=== PATIENT | female | born 1935 | race Caucasian/White ===

== ENCOUNTER → 2018-09-23 12:49 | Outpatient (CLI) | payer MEDICARE, OTHER ==
[~2018-09-23 12:49] MED LIST: AKWA TEARS15 ML RIGHT EYE; DELSYM30 MG/5 M1 PO; FLORAJEN3 CAPS460 MG PO; FLUTICASONE PRO16 GM NASAL; LEVOTHYROXINE100 MCG PO; MUCINEX600 MG PO; PRADAXA150 MG PO; PROPAFENONE HC150 MG PO; PROTONIX40 MG PO; SINGULAIR10 MG PO; SULFAMETHOXAZOL1 TA3 PO; Tessalon Perle PO; VIBRAMYCIN 100100 MG PO; Xopenex 0.63 MG INH INH
[2018-10-03 15:20] VITALS: BMI 23.2
== END | disposition home or self-care (01) ==
LOC: D.CT 12:49
PROVIDERS: ATTEND Family Medicine
DX: R05 Cough (principal)

== ENCOUNTER 2018-10-02 18:37 | Inpatient (IN) | payer MEDICARE, OTHER ==
[~2018-10-02] VITALS: Ht 165.1 cm; Wt 63.5 kg
[2018-10-02] MEDS ORDERED: PRADAXA150 MG PO (18:57)
[2018-10-02] MEDS ORDERED: PROPAFENONE HC150 MG PO (18:57)
[2018-10-02] MEDS ORDERED: PROTONIX40 MG PO (18:58)
[2018-10-02 19:33] LABS: BASOPHILS 0.1 % (0-2); EOSINOPHILS 0.9 % (0-7); HEMATOCRIT 37.9 % (36.0-48.0); HEMOGLOBIN 12.3 g/dL (12-16); IMMATURE GRANULOCYTES 0.4 % (0-5); LYMPHOCYTES 5.7 % (15-50); MCH 28.7 pg (26.0-34.0); MCHC 32.5 g/dL (31.0-37.0); MCV 88.6 fL (80.0-100.0); MEAN PLATELET VOLUME 8.4 fL (7.4-10.4); MONOCYTES 6.6 % (2-11); NEUTROPHILS 86.3 % (40-80); PLATELET COUNT 485 10x3/uL (130-400); RBC 4.28 10x6/uL (4.00-5.40); RDW 15.5 % (11.5-14.5); WBC 11.3 10x3/uL (4.8-10.8)
[2018-10-02 19:48] LABS: ALBUMIN 3.1 g/dL (3.4-5.0); ANION GAP 12.8 mmol/L (8-16); BILIRUBIN - TOTAL 0.67 mg/dL (0.2-1.3); CALCIUM 9.3 mg/dL (8.5-10.1); CARBON DIOXIDE 29.3 mmol/L (21.0-32.0); POTASSIUM - SERUM 4.1 mmol/L (3.5-5.1); PROTEIN - SERUM 8.1 g/dL (6.4-8.2)
[2018-10-02 22:14] VITALS: BP 127/53
--- NOTE | 2018-10-02 22:32 | NUR ---
REC'D PATIENT FROM ER. NO S/S OF DISTRESS. COMPLETED ADMISSION. PATIENT DENIES OTHER NEEDS AT THIS TIME. BED IN LOWEST POSITION AND CALL LIGHT WITHIN REACH. ENCOURAGED THE PATIENT TO CALL IF SHE HAS NEEDS. WILL CONTINUE TO MONITOR.
[2018-10-02 22:50] VITALS: BP 116/72; BMI 23.3
--- NOTE | 2018-10-03 07:30 | NUR ---
PT IN RESTROOM. UP AD ALEN. ALERT AND ORIENTED. NPO AFTER MIDNIGHT, GOING FOR TEST THIS AM. IV TO RIGHT WRIST, SL. SITE PATENT WITHOUT REDNESS OR SWELLING. NO C/O PAIN. NO S/S OF ACUTE DISTRESS NOTED. CALL LIGHT IN REACH. WILL CONTINUE TO MONITOR.
[2018-10-03 08:44] LABS: BASOPHILS 0.1 % (0-2); EOSINOPHILS 0.9 % (0-7); HEMATOCRIT 33.3 % (36.0-48.0); HEMOGLOBIN 10.8 g/dL (12-16); IMMATURE GRANULOCYTES 0.6 % (0-5); LYMPHOCYTES 10.1 % (15-50); MCH 28.5 pg (26.0-34.0); MCHC 32.4 g/dL (31.0-37.0); MCV 87.9 fL (80.0-100.0); MEAN PLATELET VOLUME 8.3 fL (7.4-10.4); MONOCYTES 12.1 % (2-11); NEUTROPHILS 76.2 % (40-80); PLATELET COUNT 491 10x3/uL (130-400); RBC 3.79 10x6/uL (4.00-5.40); RDW 15.4 % (11.5-14.5); WBC 8.7 10x3/uL (4.8-10.8)
[2018-10-03 09:01] LABS: ANION GAP 11.7 mmol/L (8-16); CARBON DIOXIDE 31.2 mmol/L (21.0-32.0); CREATININE - SERUM 0.9 mg/dL (0.6-1.3); POTASSIUM - SERUM 3.9 mmol/L (3.5-5.1)
[2018-10-03 09:13] VITALS: BP 128/52
--- NOTE | 2018-10-03 09:23 | NUR ---
I have reviewed this patient and I concur with the Shift Assessment completed by the Licensed Practical Nurse today this shift.
[2018-10-03] MEDS ORDERED: LEVOTHYROXINE100 MCG PO (10:51)
[2018-10-03 13:56] VITALS: BP 100/40
[2018-10-03 15:20] VITALS: Ht 165.1 cm; Wt 63.5 kg
[2018-10-03 17:04] VITALS: BP 116/59
--- NOTE | 2018-10-03 19:30 | NUR ---
REC'D IN BED AWAKE AND ALERT. RESP EVEN AND UNLABORED WITH NO DISTRESS NOTED. CAN EXPRESS NEEDS AND WANTS. NO C/O NOTED OR VOICED. ASSESSMENT COMPLETED. C/L IN REACH AT BEDSIDE.
[2018-10-03 20:00] VITALS: BP 93/40
[2018-10-04] VITALS: BP 116/54
[2018-10-04 04:00] VITALS: BP 97/43
--- NOTE | 2018-10-04 04:12 | NUR ---
I have reviewed this patient and I concur with the Shift Assessment completed by the Licensed Practical Nurse today this shift.
[2018-10-04 07:03] LABS: BASOPHILS 0.1 % (0-2); EOSINOPHILS 2.5 % (0-7); HEMATOCRIT 29.3 % (36.0-48.0); HEMOGLOBIN 9.3 g/dL (12-16); IMMATURE GRANULOCYTES 0.5 % (0-5); MCH 27.8 pg (26.0-34.0); MCHC 31.7 g/dL (31.0-37.0); MCV 87.5 fL (80.0-100.0); MEAN PLATELET VOLUME 8.3 fL (7.4-10.4); MONOCYTES 17.3 % (2-11); NEUTROPHILS 64.6 % (40-80); PLATELET COUNT 430 10x3/uL (130-400); RBC 3.35 10x6/uL (4.00-5.40); RDW 15.6 % (11.5-14.5); WBC 7.9 10x3/uL (4.8-10.8)
--- NOTE | 2018-10-04 07:30 | NUR ---
PT RESTING IN BED, EYES CLOSED. RESPIRATIONS EVEN AND UNLABORED. AROUSES TO VOICE. NO C/O PAIN. NO S/S OF ACUTE DISTRESS NOTED. IV TO RIGHT WRIST, SL. SITE PATENT WITHOUT REDNESS OR SWELLING. PT ON TELEMETRY 75 SR. PT DENIES ANYTHING FURTHER AT THIS TIME. CALL LIGHT IN REACH. WILL CONTINUE TO MONITOR.
[2018-10-04 08:11] LABS: ANION GAP 10.9 mmol/L (8-16); CARBON DIOXIDE 29.9 mmol/L (21.0-32.0); CREATININE - SERUM 0.8 mg/dL (0.6-1.3); POTASSIUM - SERUM 3.8 mmol/L (3.5-5.1)
[2018-10-04 08:51] VITALS: BP 122/58
--- NOTE | 2018-10-04 12:58 | HP ---
PATIENT: KEITH CHRISTIE MEDICAL RECORD: [id number] ACCOUNT: [id number] LOCATION:D.MS [id number] : 37 ADMISSION DATE: 10/02/18 PCP: KEVIN STANLEY MD HISTORY AND PHYSICAL EXAMINATION DATE OF ADMISSION: 10/02/2018. CHIEF COMPLAINT: Cough. HISTORY OF PRESENT ILLNESS: This is an 83-year-old female who has been having a cough now for about 4 months. She has generalized malaise, cough, congestion. She has had no fever or chills, but coughing up some green phlegm. She has been in our office off and on and treated with doxycycline, then Augmentin, then clindamycin twice (she admitted she did not take the clindamycin correctly the first time). She has no fever or chills. I saw her in the office on 09/21/[address] scan of her chest that showed patchy bilateral lower lobe consolidations with occlusion of bilateral lower lobe rhonchi and consider aspiration in proper clinical settings. I set her up for swallowing eval, but she came in with continued cough and she it is wearing her out. A CT scan done this time shows persistent relatively unchanged airspace disease in the bilateral lower lobes and a small amount of airspace disease in the lateral right upper lobe concerning for pneumonia. There is a small hiatal hernia. She is admitted for further treatment and consultation with a engineer. PAST MEDICAL AND SURGICAL HISTORY: She has lymphoma followed by Dr. Dudley. She has hypertension and peripheral artery disease, anemia, thyroid disease, arthritis, atrial fibrillation, followed by Dr. Caceres. PAST SURGICAL HISTORY: None. She is up to date on pneumonia shots as well as flu shot. ALLERGIES: NOTED TO CODEINE, DEMEROL, MORPHINE, AND HYDROCODONE. HABITS: Never smoked. No alcohol or drugs. SOCIAL HISTORY: , retired. Her daughter is an anesthesiologist. HOME MEDICATIONS: Include B12 injection once a month, Tessalon Perles 100 mg t.i.d. p.r.n. cough, Pradaxa 150 mg twice a day, Flonase nasal spray daily, levothyroxine 100 mcg daily, Zofran ODT 4 mg q.8 hours p.r.n., meclizine 12.5 p.r.n. dizziness, pantoprazole 40 mg a day, propafenone 225 mg twice a day, pravastatin 40 mg at bedtime. REVIEW OF SYSTEMS: GENERAL: She has had some slow progression of weight loss throughout the last few months and increased fatigue. HEENT: No particular sinus or allergy problems. RESPIRATORY: She has had this prolonged cough since May with occasional wheezing. CARDIAC: No coronary artery disease, but does have atrial fibrillation and peripheral artery disease. GASTROINTESTINAL: She has reflux. GENITOURINARY: No significant problems there. MUSCULOSKELETAL: Has a few arthritic aches and pains. HISTORY AND PHYSICAL [id number] KEITH CHRISTIE NEUROLOGIC: No seizures. No migraines. PSYCHIATRIC: No depression or melancholia. PHYSICAL EXAMINATION: VITAL SIGNS: Temperature 98.1, pulse 79, respirations 20, blood pressure 128/52, O2 sat 95%. GENERAL: She is awake and alert. She is sitting on side of the bed, eating lunch. SKIN: Warm and dry. HEENT: Grossly within normal limits. NECK: Supple. HEART: Regular rate and rhythm. LUNGS: Some diminished breath sounds in the bases bilaterally. No wheezes or rales appreciated. ABDOMEN: Soft. EXTREMITIES: No edema. LABORATORY DATA: CBC with a white count of 8700, hemoglobin 10.8, hematocrit 33.3, platelets number 491,000. Differential is essentially normal. Basic metabolic panel is normal. Liver enzymes: AST elevated at 92, ALT elevated at 74, alkaline phosphatase elevated at 248. A chest x-ray was done in the Emergency Room showing mild bibasilar atelectasis or infiltrate and CT of the chest done comparing to previous on 09/23/2018 shows persistent relatively unchanged airspace disease in the bilateral lower lobes with a small amount of airspace disease in the lateral right upper lobe concerning for pneumonia. ASSESSMENT: 1. Pneumonia. 2. Cough for 4 months. 3. History of lymphoma. PLAN: IV antibiotics, respiratory meds. Pulmonary has been consulted. She was having some abdominal pain and ultrasound of the gallbladder was done. Other tests and procedures as warranted. TRANSINT:[id number] Voice Confirmation ID: [id number] DOCUMENT ID: [id number] KEVIN STANLEY MD at 1258 CC: [id number] DICTATION DATE: 10/03/18 1324 AUTHOR'S AGENT: 10/03/[address] [facility] [address] [facility] [place] [address]
[2018-10-04 13:21] VITALS: BP 115/50
--- NOTE | 2018-10-04 14:51 | NUR ---
IV TO RIGHT WRIST INFILTRATED, DISCONTINUED IV CATHETER TIP INTACT. RESITED TO LEFT FOREARM, X1 TRY, 22 GAUGE. IV SL.
--- NOTE | 2018-10-04 15:59 | NUR ---
I have reviewed this patient and I concur with the Shift Assessment completed by the Licensed Practical Nurse today this shift.
[2018-10-04 17:52] VITALS: BP 132/94
--- NOTE | 2018-10-04 18:43 | NUR ---
PT RESTING IN BED, EYES OPEN WATCHING TV. AT BEDSIDE. NO C/O PAIN. NO S/S OF ACUTE DISTRESS NOTED. CALL LIGHT IN REACH. PT DENIES ANYTHING FURTHER.
[2018-10-04 20:00] VITALS: BP 108/40
[2018-10-04 20:25] LABS: BASOPHILS 0.2 % (0-2); EOSINOPHILS 2.5 % (0-7); HEMATOCRIT 33.7 % (36.0-48.0); HEMOGLOBIN 10.7 g/dL (12-16); IMMATURE GRANULOCYTES 0.4 % (0-5); MCH 28.4 pg (26.0-34.0); MCHC 31.8 g/dL (31.0-37.0); MCV 89.4 fL (80.0-100.0); MEAN PLATELET VOLUME 8.6 fL (7.4-10.4); MONOCYTES 12.4 % (2-11); NEUTROPHILS 70.5 % (40-80); PLATELET COUNT 516 10x3/uL (130-400); RBC 3.77 10x6/uL (4.00-5.40); RDW 15.5 % (11.5-14.5); WBC 9.6 10x3/uL (4.8-10.8)
[2018-10-04 20:40] LABS: INR 1.41 (0.85-1.17); PROTIME 16.7 SECONDS (11.6-15.0)
[2018-10-04 20:41] LABS: APTT 58.3 SECONDS (22.8-39.4)
[2018-10-05] VITALS (8 sets, daily range): BP systolic 101–129; BP diastolic 40–59
[2018-10-05 07:44] LABS: BASOPHILS 0.2 % (0-2); EOSINOPHILS 2.5 % (0-7); HEMATOCRIT 34.1 % (36.0-48.0); HEMOGLOBIN 10.9 g/dL (12-16); IMMATURE GRANULOCYTES 0.7 % (0-5); LYMPHOCYTES 16.3 % (15-50); MCH 27.9 pg (26.0-34.0); MEAN PLATELET VOLUME 8.4 fL (7.4-10.4); MONOCYTES 11.4 % (2-11); NEUTROPHILS 68.9 % (40-80); PLATELET COUNT 500 10x3/uL (130-400); RDW 15.6 % (11.5-14.5); WBC 8.5 10x3/uL (4.8-10.8)
[2018-10-05 07:48] LABS: ANION GAP 14.2 mmol/L (8-16); CALCIUM 8.7 mg/dL (8.5-10.1); CARBON DIOXIDE 27.8 mmol/L (21.0-32.0); CREATININE - SERUM 0.8 mg/dL (0.6-1.3); INR 1.23 (0.85-1.17); PROTIME 14.9 SECONDS (11.6-15.0)
[2018-10-05 07:49] LABS: APTT 61.8 SECONDS (22.8-39.4)
[2018-10-05 08:06] LABS: MCV 87.4 fL (80.0-100.0)
--- NOTE | 2018-10-05 08:57 | NUR ---
REC'D.AT CHGE OF SHIFT.UP GETTING READY FOR BED. REINFORCED NPO AT MIDNITE FO BRONCHOSCOPY VOICES UNDERSTANING STATES HAS HAD ONE BEFORE.COUGH NON-PRODUCTIVE WILL CONTINUE TO MONITOR FOR ANY CHGES AND FOLLOW CURRENT PLAN OF CARE
--- NOTE | 2018-10-05 14:04 | NUR ---
NUTRITION F//U PT CURRENTLY NPO THEN TO ADVANCE TOLERATED TO REG DIET. WILL PROVIDE DIET, HONOR FOOD PREFERENCES, MONITOR PO INTAKE. RD FOLLOWING
--- NOTE | 2018-10-05 16:45 | NUR ---
PT RESTING IN BED. NO SIGNS OF DISTRESS. IV TO LEFT FORARM PATENT NO REDNESS OR TENDERNESS. ON TELEMETRY 68 SR. HAD BRONCH DONE TODAY. DENIES ANY FUTHER NEED AT THIS TIME. CALL LIGHT IN REACH. BED LOW POSITION. NO FAMILY AT BEDSIDE.
--- NOTE | 2018-10-05 16:53 | NUR ---
I have reviewed this patient and I concur with the Shift Assessment completed by the Licensed Practical Nurse today this shift.
[2018-10-06] VITALS (7 sets, daily range): BP systolic 110–128; BP diastolic 49–81
--- NOTE | 2018-10-06 00:08 | NUR ---
REC'D. SITTING UP BEDSIDE CHAIR.WATCHING TV.COUGH NONPRODUCTIVE.WITH SOME EXP.WHEEZING NOTED. NO RESP.OBSERVERED.WILL CONTINUE TO MONITOR FOR ANY CHGES IN RESP. STATUS AND FOLLOW CURRENT PLAN OF CARE.
--- NOTE | 2018-10-06 04:17 | NUR ---
I have reviewed this patient and I concur with the Shift Assessment completed by the Licensed Practical Nurse today this shift.
--- NOTE | 2018-10-06 05:52 | NUR ---
REFUSED AM LAB DRAW
--- NOTE | 2018-10-06 07:30 | NUR ---
PT RESTING IN BED, EYES OPEN. ALERT AND ORIENTED. PT THREE AFFILIATED, WEARS HEARING AIDS. IV TO LEFT FOREARM, SL. SITE PATENT WITHOUT REDNESS OR SWELLING. PT ON TELEMETRY, SR 72. NO C/O PAIN. NO S/S OF ACUTE DISTRESS NOTED. PT DENIES ANYTHING FURTHER AT THIS TIME. CALL LIGHT IN REACH. WILL CONTINUE TO MONITOR.
[2018-10-06 08:56] LABS: BASOPHILS 0.1 % (0-2); EOSINOPHILS 2.2 % (0-7); HEMATOCRIT 33.7 % (36.0-48.0); HEMOGLOBIN 10.8 g/dL (12-16); IMMATURE GRANULOCYTES 0.3 % (0-5); MCH 28.3 pg (26.0-34.0); MCV 88.2 fL (80.0-100.0); MEAN PLATELET VOLUME 8.5 fL (7.4-10.4); NEUTROPHILS 69.4 % (40-80); PLATELET COUNT 466 10x3/uL (130-400); RBC 3.82 10x6/uL (4.00-5.40); RDW 15.3 % (11.5-14.5); WBC 7.2 10x3/uL (4.8-10.8)
[2018-10-06 09:08] LABS: CALC OSMOLALITY 274 mosm/kg (275-300); CALCIUM 8.7 mg/dL (8.5-10.1); CARBON DIOXIDE 28.2 mmol/L (21.0-32.0); CHLORIDE - SERUM 103 mmol/L (98-107); CREATININE - SERUM 0.7 mg/dL (0.6-1.3); GLUCOSE 93 mg/dL (74-106); POTASSIUM - SERUM 4.5 mmol/L (3.5-5.1); SODIUM 137 mmol/L (136-145); UREA NITROGEN 14 mg/dL (7-18); eGFR NON AFRICAN AMERICAN 85 mL/min (90-120)
[2018-10-06 09:12] LABS: IMMUNOGLOBULIN A 123 mg/dL (64-422)
--- NOTE | 2018-10-06 13:44 | NUR ---
PT IV INFILTRATED, DISCONTINUED IV TO LEFT FOREARM. RESITED TO RIGHT FOREARM, X2 TRIES 22 GAUGE. CEFEPIME INFUSING AT THIS TIME.
[2018-10-06 17:08] LABS: ACID FAST SMEAR Negative (()); AFB SPECIMEN PROCESSING Concentration (())
--- NOTE | 2018-10-06 18:26 | MORECARE ---
CASE MANAGEMENT DISCHARGE SUMMARY PATIENT: KEITH CHRISTIE UNIT: [id number] ADM DATE: 10/02/18 AGE: 83 : 36 SEX: F ROOM/BED: D.2239 AUTHOR: MARINA SINGH PHYSICIAN: REFERRING PHYSICIAN: KEVIN STANLEY MD DATE OF SERVICE: 10/06/18 Discharge Plan Patient Name: KEITH CHRISTIE [facility] [facility] 1935 Planned Disposition: Home Anticipated Discharge Date: 10/10/18 Discharge Date: Expected LOS: 8 Initial Reviewer: [email or web address] Initial Review Date: 10/06/2018 Generated: 10/06/18 7:26 pm DCPIA - Discharge Planning Initial Assessment Updated by [email or web address]: Gabriella Logan on 10/06/18 6:22 pm * Is the patient Alert and Oriented? Yes * How many steps to enter\exit or inside your home? * PCP * Pharmacy [facility] IN [place] * Preadmission Environment Home Alone * ADLs Independent * Equipment None * List name and contact numbers for known caregivers / representatives who currently or will assist patient after discharge: NICOLE (SPOUSE) [phone] * Verbal permission to speak to the caregivers and representatives has been obtained from the patient. Yes * Community resources currently utilized None * Additional services required to return to the preadmission environment? Yes * Can the patient safely return to the preadmission environment? Yes * Has this patient been hospitalized within the prior 30 days at any hospital? No Patient Name: KEITH CHRISTIE Page [id number] at 1826 All edits/amendments must be made on the electronic document DICTATION DATE: 10/06/181824 TUBER HELPER: VERONICA 10/06/181824 RPT#: [id number] DC DATE: STATUS: ADM IN [facility] [address] [place] [address] END OF REPORT
--- NOTE | 2018-10-06 18:33 | MORECARE ---
CASE MANAGEMENT DISCHARGE SUMMARY PATIENT: KEITH CHRISTIE UNIT: [id number] ADM DATE: 10/02/18 AGE: 83 : 36 SEX: F ROOM/BED: D.2239 AUTHOR: MARINA SINGH PHYSICIAN: REFERRING PHYSICIAN: KEVIN STANLEY MD DATE OF SERVICE: 10/06/18 Discharge Plan Patient Name: KEITH CHRISTIE Facility: [facility]:[place] : 1935 Planned Disposition: Home Anticipated Discharge Date: 10/10/18 Discharge Date: Expected LOS: 8 Initial Reviewer: [email or web address] Initial Review Date: 10/06/2018 Generated: 10/06/18 7:33 pm Comments DCP- Discharge Planning Updated by [id number]: Gabriella Logan on 10/06/18 5:[address] Patient Name: KEITH CHRISTIE Admission Status: ER Accout number: [id number] Admission Date: 10-02-2018 : 1935 Admission Diagnosis:PNEUMONIA, UNSPECIFIED ORGANISM Attending: KEVIN STANLEY Current LOS: 4 Anticipated DC Date: 10-10-2018 Planned Disposition: Home Primary Insurance: MEDICARE A & B Discharge Planning Comments: CM SPOKE WITH PATIENT REGARDING D/C NEEDS AND PLANS. PATIENT STATED SHE LIVES WITH HER SPOUSE AND HE SHOULD DRIVE HER HOME AT DISCHARGE. PATIENT STATED SHE HAS 2 STEPS TO ENTER HOME AND STAIRS INSIDE. PATIENT IS INDEPENDENT WITH HER CARE AND HAS NO DME AT HOME. PATIENTS PCP IS DR. STANLEY AND PHARMACY IS [facility] HERE IN [place]. PATIENT WILL DECIDE ON HOMEHEALTH OR NOT BEFORE DISCHARGE. CM WILL CONTINUE TO FOLLOW PATIENT WITH D/C NEEDS AND PLANS. Control Equipment Electrician: Gabriella Logan DCPIA - Discharge Planning Initial Assessment Updated by [email or web address]: Gabriella Logan on 10/06/18 6:29 pm * Is the patient Alert and Oriented? Yes * How many steps to enter\exit or inside your home? * PCP * Pharmacy [facility] IN [place] * Preadmission Environment Home with Family * ADLs Independent * Equipment None * List name and contact numbers for known caregivers / representatives who currently or will assist patient after discharge: BILL (SPOUSE) [phone] * Verbal permission to speak to the caregivers and representatives has been obtained from the patient. Yes * Community resources currently utilized None * Additional services required to return to the preadmission environment? Yes * Can the patient safely return to the preadmission environment? Yes * Has this patient been hospitalized within the prior 30 days at any hospital? No Last DP export: 10/06/18 5:26 p Patient Name: KEITH CHRISTIE Page [phone] at 1833 All edits/amendments must be made on the electronic document DICTATION DATE: 10/06/181831 SCIENCE WRITER: VERONICA 10/06/181831 RPT#: [id number] DC DATE: STATUS: ADM IN [facility] [address] [place] [address] END OF REPORT
--- NOTE | 2018-10-06 18:41 | NUR ---
PT SITTING UP IN CHAIR. NO C/O PAIN. NO S/S OF ACUTE DISTRESS NOTED. PT DENIES ANYTHING FURTHER AT THIS TIME. CALL LIGHT IN REACH. WILL CONTINUE TO MONITOR.
--- NOTE | 2018-10-06 18:55 | NUR ---
I have reviewed this patient and I concur with the Shift Assessment completed by the Licensed Practical Nurse today this shift.
[2018-10-07 04:00] VITALS: BP 121/60
[2018-10-07 06:12] LABS: IGG SUBCLASS 1 394 mg/dL (248-810); IGG SUBCLASS 2 227 mg/dL (130-555); IGG SUBCLASS 3 36 mg/dL (15-102); IGG SUBCLASS 4 9 mg/dL (2-96); IMMUNOGLOBULIN G 627 mg/dL (700-1600)
[2018-10-07 06:35] LABS: BASOPHILS 0.2 % (0-2); HEMATOCRIT 30.5 % (36.0-48.0); HEMOGLOBIN 9.8 g/dL (12-16); IMMATURE GRANULOCYTES 0.7 % (0-5); LYMPHOCYTES 18.8 % (15-50); MCHC 32.1 g/dL (31.0-37.0); MCV 87.1 fL (80.0-100.0); MEAN PLATELET VOLUME 8.5 fL (7.4-10.4); MONOCYTES 13.7 % (2-11); NEUTROPHILS 63.6 % (40-80); PLATELET COUNT 412 10x3/uL (130-400); RDW 15.2 % (11.5-14.5); WBC 6.1 10x3/uL (4.8-10.8)
[2018-10-07 06:36] LABS: ANION GAP 6.8 mmol/L (8-16); CALCIUM 8.3 mg/dL (8.5-10.1); CARBON DIOXIDE 31.2 mmol/L (21.0-32.0)
[2018-10-07 06:37] LABS: CREATININE - SERUM 0.9 mg/dL (0.6-1.3)
[2018-10-07 11:01] VITALS: BP 126/63
--- NOTE | 2018-10-07 11:56 | NUR ---
PT RESTING IN BED. NO SIGNS OF DISTRESS. IV TO LEFT FORARM PATENT NO REDNESS OR TENDERNESS. ON TELEMETRY 69 NORMAL SINUS. ON DROPLET ISO FOR POSSIBLE STAPH. DENIES ANY FUTHER NEED AT THIS TIME. CALL LIGHT IN REACH. BED LOW POSITION. NO FAMILY AT BEDSIDE AT THIS TIME.
[2018-10-07 12:00] VITALS: BP 134/81
[2018-10-07 14:08] VITALS: BP 134/81
--- NOTE | 2018-10-07 14:14 | NUR ---
I have reviewed this patient and I concur with the Shift Assessment completed by the Licensed Practical Nurse today this shift.
[2018-10-07 15:11] LABS: FUNGUS STAIN Final report (())
[2018-10-07 17:26] VITALS: BP 128/68
[2018-10-07 20:00] VITALS: BP 119/56
[2018-10-08 04:00] VITALS: BP 135/63
[2018-10-08 08:00] VITALS: BP 141/60
[2018-10-08] MEDS ORDERED: Xopenex 0.63 MG INH INH (09:31)
[2018-10-08] MEDS ORDERED: Tessalon Perle PO (09:32)
[2018-10-08] MEDS ORDERED: MUCINEX600 MG PO (09:33)
[2018-10-08] MEDS ORDERED: DELSYM30 MG/5 M1 PO (09:33)
[2018-10-08] MEDS ORDERED: SINGULAIR10 MG PO (09:33)
[2018-10-08] MEDS ORDERED: FLUTICASONE PRO16 GM NASAL (09:34)
[2018-10-08] MEDS ORDERED: AKWA TEARS15 ML RIGHT EYE (09:34)
[2018-10-08] MEDS ORDERED: FLORAJEN3 CAPS460 MG PO (09:34)
[2018-10-08] MEDS ORDERED: SULFAMETHOXAZOL1 TA3 PO (09:36)
[2018-10-08 12:58] VITALS: BP 145/63
--- NOTE | 2018-10-08 13:15 | NUR ---
SPOKE WITH DR BIANCHI. WILL D/C HOME ON DOXYCYCLINE RATHER THAN BACTRIM DS.
[2018-10-08] MEDS ORDERED: VIBRAMYCIN 100100 MG PO (13:17)
--- NOTE | 2018-10-08 14:06 | MORECARE ---
CASE MANAGEMENT DISCHARGE SUMMARY PATIENT: KEITH CHRISTIE UNIT: [id number] ADM DATE: 10/02/18 AGE: 83 : 36 SEX: F ROOM/BED: D.2239 AUTHOR: MARINA SINGH PHYSICIAN: REFERRING PHYSICIAN: KEVIN STANLEY MD DATE OF SERVICE: 10/08/18 Discharge Plan Patient Name: KEITH CHRISTIE Facility: [facility]:[place] : 1935 Planned Disposition: Home Anticipated Discharge Date: 10/10/18 Discharge Date: Expected LOS: 8 Initial Reviewer: [email or web address] Initial Review Date: 10/06/2018 Generated: 10/08/18 3:06 pm Comments DCP- Discharge Planning Updated by [email or web address]: Gabriella Logan on 10/06/18 5:[address] Patient Name: KEITH CHRISTIE Admission Status: ER Accout number: [id number] Admission Date: 10-02-2018 : 1935 Admission Diagnosis:PNEUMONIA, UNSPECIFIED ORGANISM Attending: KEVIN STANLEY Current LOS: 4 Anticipated DC Date: 10-10-2018 Planned Disposition: Home Primary Insurance: MEDICARE A & B Discharge Planning Comments: CM SPOKE WITH PATIENT REGARDING D/C NEEDS AND PLANS. PATIENT STATED SHE LIVES WITH HER SPOUSE AND HE SHOULD DRIVE HER HOME AT DISCHARGE. PATIENT STATED SHE HAS 2 STEPS TO ENTER HOME AND STAIRS INSIDE. PATIENT IS INDEPENDENT WITH HER CARE AND HAS NO DME AT HOME. PATIENTS PCP IS DR. STANLEY AND PHARMACY IS [facility] HERE IN [place]. PATIENT WILL DECIDE ON HOMEHEALTH OR NOT BEFORE DISCHARGE. CM WILL CONTINUE TO FOLLOW PATIENT WITH D/C NEEDS AND PLANS. Passenger Service Agent: Gabriella Logan DCPIA - Discharge Planning Initial Assessment Updated by [email or web address]: Gabriella Logan on 10/06/18 6:29 pm * Is the patient Alert and Oriented? Yes * How many steps to enter\exit or inside your home? * PCP * Pharmacy [facility] IN [place] * Preadmission Environment Home with Family * ADLs Independent * Equipment None * List name and contact numbers for known caregivers / representatives who currently or will assist patient after discharge: BILL (SPOUSE) [phone] * Verbal permission to speak to the caregivers and representatives has been obtained from the patient. Yes * Community resources currently utilized None * Additional services required to return to the preadmission environment? Yes * Can the patient safely return to the preadmission environment? Yes * Has this patient been hospitalized within the prior 30 days at any hospital? No Coverage Notice Reviewer: [email or web address] Jm Woody Notice Issued Date-Time: 10/08/2018 13:25 Notice Type: IM Discharge Notice Notice Delivered To: Patient Relationship to Patient: Self Pick And Shovel Worker Name: Delivery Method: HAND - Hand Delivered Catalina Days: Prior Verbal Notification: Recipient Understood Notice: Yes Recipient Signature: Yes Med Rec Note Co-signed by Attending: Coverage Notice Comment: CM EXPLAINED DISCHARGE IMM. PATIENT STATES SHE IS READY TO BE DISCHARGED TO HOME. STATES SHE UNDERSTANDS. NO QUESTIONS. Last DP export: 10/06/18 5:33 p Patient Name: KEITH CHRISTIE Page 21055 at 1406 All edits/amendments must be made on the electronic document DICTATION DATE: 10/08/18 1405 ROUGHENER: VERONICA 10/08/18 1405 RPT#: [id number] DC DATE: STATUS: ADM IN [facility] [address] [place] [address] END OF REPORT
--- NOTE | 2018-10-08 14:13 | MORECARE ---
CASE MANAGEMENT DISCHARGE SUMMARY PATIENT: KEITH CHRISTIE UNIT: [id number] ADM DATE: 10/02/18 AGE: 83 : 36 SEX: F ROOM/BED: D.2019 AUTHOR: MARINA SINGH PHYSICIAN: REFERRING PHYSICIAN: KEVIN STANLEY MD DATE OF SERVICE: 10/08/18 Discharge Plan Patient Name: KEITH CHRISTIE Facility: [facility]:[place] : 1935 Planned Disposition: Home Anticipated Discharge Date: 10/10/18 Discharge Date: Expected LOS: 8 Initial Reviewer: [email or web address] Initial Review Date: 10/06/2018 Generated: 10/08/18 3:13 pm Comments DCP- Discharge Planning Updated by [email or web address]: Eda Woody on 10/08/18 1:[address] PATIENT CHOICE FORM FOR DME HAD BEEN SIGNED BY THE PATIENT AT 1130. ORIGINAL TO THE PATIENT. ORIGINAL TO THE PATIENT'S HARD COPY CHART. DCP- Discharge Planning Updated by [email or web address]: Eda Woody on 10/08/18 1:[address] PATIENT HAD A DISCHARGE ORDER. WHEN NURSE ADVISED DR BIANCHI, HE STATED THE PATIENT WOULD NEED A NEBULIZER. CM VISITED THE PATIENT. DISCUSSED PROVIDERS AND GAVE HER A LIST. NO PREFERRED PROVIDER. TC TO [employer] [facility] AT [facility]. SPOKE W/ ADAN. NO ADULT NEBULIZERS ARE AVAILABLE. TC TO [facility]. DID NOT RECEIVE A CALL BACK. ADVISED THE PATIENT. TC TO [facility]. REC CB. COMPLETED PAPERWORK AND OBTAINED DR BIANCHI'S SIGNATURE. FAXED PAPERWORK TO . TC TO ON-CALL. HE WILL DELIVER THE NEBULIZER TO THE PATIENT'S HOME. PATIENT RECEIVED TELEPHONE CALL FROM [facility] PATIENT IN HER ROOM. MEDICATIONS WILL BE OBTAINED FROM [facility]. THE PATIENT'S PHARMACY, [facility], CLOSED AT 12 NOON. SHE HAS TRANSPORTATION TO HOME. DENIES ANY NEEDS. DECLINES HOME HEALTH. DCP- Discharge Planning Updated by [id number]: Gabriella Logan on 10/06/18 5:[address] Patient Name: KEITH CHRISTIE Admission Status: ER Accout number: [id number] Admission Date: 10-02-2018 : 0905-1935 Admission Diagnosis:PNEUMONIA, UNSPECIFIED ORGANISM Attending: KEVIN STANLEY Current LOS: 4 Anticipated DC Date: 10-10-2018 Planned Disposition: Home Primary Insurance: MEDICARE A & B Discharge Planning Comments: CM SPOKE WITH PATIENT REGARDING D/C NEEDS AND PLANS. PATIENT STATED SHE LIVES WITH HER SPOUSE AND HE SHOULD DRIVE HER HOME AT DISCHARGE. PATIENT STATED SHE HAS 2 STEPS TO ENTER HOME AND STAIRS INSIDE. PATIENT IS INDEPENDENT WITH HER CARE AND HAS NO DME AT HOME. PATIENTS PCP IS DR. STANLEY AND PHARMACY IS [facility] HERE IN [place]. PATIENT WILL DECIDE ON HOMEHEALTH OR NOT BEFORE DISCHARGE. CM WILL CONTINUE TO FOLLOW PATIENT WITH D/C NEEDS AND PLANS. Assistant Chief Train Dispatcher: [facility]ella Logan [facility] Initial Assessment Updated by [email or web address]: Gabriella Logan on 10/06/18 6:29 pm * Is the patient Alert and Oriented? Yes * How many steps to enter\exit or inside your home? * PCP * Pharmacy [facility] IN [place] * Preadmission Environment Home with Family * ADLs Independent * Equipment None * List name and contact numbers for known caregivers / representatives who currently or will assist patient after discharge: NICOLE (SPOUSE) [phone] * Verbal permission to speak to the caregivers and representatives has been obtained from the patient. Yes * Community resources currently utilized None * Additional services required to return to the preadmission environment? Yes * Can the patient safely return to the preadmission environment? Yes * Has this patient been hospitalized within the prior 30 days at any hospital? No Coverage Notice Reviewer: [email or web address] Jm Woody Notice Issued Date-Time: 10/08/2018 13:25 Notice Type: IM Discharge Notice Notice Delivered To: Patient Relationship to Patient: Self Sales Representative [employer] Name: Delivery Method: HAND - Hand Delivered Catalina Days: Prior Verbal Notification: Recipient Understood Notice: Yes Recipient Signature: Yes Med Rec Note Co-signed by Attending: Coverage Notice Comment: CM EXPLAINED DISCHARGE IMM. PATIENT STATES SHE IS READY TO BE DISCHARGED TO HOME. STATES SHE UNDERSTANDS. NO QUESTIONS. Last DP export: 10/08/18 1:06 p Patient Name: KEITH CHRISTIE Page 96919 at 1413 All edits/amendments must be made on the electronic document DICTATION DATE: 10/08/181411 BALE STACKER: VERONICA 10/08/181411 RPT#: [id number] DC DATE: STATUS: ADM IN [facility] [address] [place] [address] END OF REPORT
--- NOTE | 2018-10-08 14:38 | NUR ---
DISCHARGE INSTRUCTIONS GIVEN. SEEMS TO UNDERSTAND INSTRUCTIONS. IV TIP INTACT. TELEMETRY OFF. NO SIGNS OF DISTRESS. LEFT WITH HOSPITAL STAFF TO GO HOME IN PERSONAL RIDE.
== END 2018-10-08 14:39 | disposition home or self-care (01) | DRG 178 ==
LOC: D.ER 18:37 → D.MS 21:47 → D.EDHOLD 21:47 → D.MS 21:59
PROVIDERS: Family Medicine; Internal Medicine Nephrology; Internal Medicine Pulmonary Disease; ADMIT Family Medicine; ATTEND Family Medicine
PROC: 0BDB8ZX Extraction of Left Lower Lobe Bronchus, Via Natural or Artificial Opening Endoscopic, Diagnostic (ICD-10-PCS; principal; 2018-10-05 11:38)
DX: J15.212 Pneumonia due to Methicillin resistant Staphylococcus aureus (principal); C85.90 Non-Hodgkin lymphoma, unspecified, unspecified site; J18.9 Pneumonia, unspecified organism; I10 Essential (primary) hypertension; I73.9 Peripheral vascular disease, unspecified; D64.9 Anemia, unspecified; I48.91 Unspecified atrial fibrillation

== ENCOUNTER → 2019-02-14 09:40 | Outpatient (CLI) | payer MEDICARE, OTHER ==
[2018-10-03 15:20] VITALS: BMI 23.2
== END | disposition home or self-care (01) ==
LOC: D.RT 09:40
PROVIDERS: ATTEND Internal Medicine Pulmonary Disease
DX: J18.9 Pneumonia, unspecified organism (principal)

== ENCOUNTER → 2019-03-29 21:10 | Outpatient (CLI) | payer MEDICARE, OTHER ==
[2018-10-03 15:20] VITALS: BMI 23.2
== END | disposition home or self-care (01) ==
LOC: D.LABREF 21:10
PROVIDERS: ATTEND Urology
DX: R31.9 Hematuria, unspecified (principal); D72.819 Decreased white blood cell count, unspecified

== ENCOUNTER → 2019-06-21 13:48 | Outpatient (CLI) | payer MEDICARE, OTHER ==
[2018-10-03 15:20] VITALS: BMI 23.2
[~2019-06-21 13:48] MED LIST changes: +ULTRAM50 MG PO
== END | disposition home or self-care (01) ==
LOC: D.LABREF 13:48
PROVIDERS: ATTEND Urology
DX: R82.90 Unspecified abnormal findings in urine (principal); R31.9 Hematuria, unspecified; R82.998 Other abnormal findings in urine

== ENCOUNTER 2019-06-22 11:20 | Emergency (ER) | payer MEDICARE, OTHER ==
[~2019-06-22] VITALS: Ht 165.1 cm; Wt 65.9 kg
[~2019-06-22 11:20] MED LIST changes: -ULTRAM50 MG PO
[2019-06-22 12:08] VITALS: BP 115/68; Ht 165.1 cm; Wt 65.9 kg
[2019-06-22] MEDS ORDERED: ULTRAM50 MG PO (13:44)
== END 2019-06-22 14:32 | disposition home or self-care (01) ==
LOC: D.ER 11:20
DX: M25.552 Pain in left hip (principal); M25.512 Pain in left shoulder; W19.XXXA Unspecified fall, initial encounter; Y93.9 Activity, unspecified; Y92.238 Other place in hospital as the place of occurrence of the external cause; E07.9 Disorder of thyroid, unspecified